=== PATIENT | male | born 2000 | race Caucasian/White ===

== ENCOUNTER 2019-02-04 11:22 | Emergency (ER) | payer OTHER ==
[~2019-02-04] VITALS: Ht 175.3 cm; Wt 131.0 kg
--- NOTE | 2019-02-04 13:02 | NUR ---
DR. BHATIA INFORMED PT EKG LOOKS GOOD. IF ANY FURTHER CHEST PAIN F/U WITH YOUR PRIMARY
[2019-02-04] MEDS ORDERED: ibuprofen tablet 400 MG TABLET PO ONE (13:05)
[2019-02-04 13:31] VITALS: BP 147/73
== END 2019-02-04 13:58 | disposition home or self-care (01) ==
LOC: ER 11:23
DX: M25.531 Pain in right wrist (principal); R07.89 Other chest pain; Z98.890 Other specified postprocedural states; W18.39XA Other fall on same level, initial encounter; Y93.89 Activity, other specified; Y92.89 Other specified places as the place of occurrence of the external cause; Y99.8 Other external cause status
CPT/HCPCS: 29125; 73110; 93005; 99283